=== PATIENT | male | born 1950 | race Caucasian/White ===

== ENCOUNTER 2019-03-11 08:39 | Inpatient (IN) | payer OTHER ==
[~2019-03-11] VITALS: Ht 175.3 cm; Wt 58.1 kg
[~2019-03-11 08:39] MED LIST: ALBU18HF INH; ASPI-496 PO; ATEN25TA PO; CEPH-368 PO; CHOL10003 PO; CYAN-27 PO; Calcium PO; FOLI-17 PO; HYDR-36 PO; ISOS30TA21 PO; METH4TAB2 PO; METH750T87 PO; NITR0.4T41 SL; OMEP-110 PO; SIMV40TA3 PO
[2019-03-11] MEDS ORDERED: ONDANSETRON 2MG/ML, 2ML ONE (08:56)
[2019-03-11] MEDS ORDERED: MORPHINE SULFATE 4 MG/ML, 1ML ONE ×3 (08:56→11:47)
[2019-03-11] MEDS: MORPHINE SULFATE 4 MG/ML, 1ML IVPush PRN ×2 (08:58→09:48)
[2019-03-11] MEDS ORDERED: ONDANSETRON 2MG/ML, 2ML IVPush ONE (09:00)
--- NOTE | 2019-03-11 09:04 | NUR ---
PT TO CT SCAN WITH KIRILL DEAN, ON MRI CT TECH
[2019-03-11] MEDS ORDERED: OMNIPAQUE 350 MG/ML, 100ML BOTTLE ONE (09:14)
--- NOTE | 2019-03-11 09:20 | NUR ---
THIS IS A 68 YO MALE COMING IN FOR DIFFICULTY SWALLOWING AND BREATHING SINCE LAST NIGHT, WAS WORSE THIS MORNING. PATIENT HAD CERVICAL SURGERY SUNDAY AT [facility], WAS D/C YESTERDAY. FAMILY MEMBER IN ROOM SAID THAT DRESSING ON INCISION WAS CLEAR AND DRY YESTERDAY, THIS MORNING IT WAS BLEEDING AND WET. INCISION SITE IS SWOLLEN, RED, AND LEAKING SEROSAGUINOUS FLUID. PATIENT HAS HX CERVICAL SURGERY, 4 SC'S "YEARS AGO". 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 IV STARTED ON PATIENT IMMEDIATELY, AND BROUGHT TO CT. PATIENT CURRENTLY BACK IN ROOM, FAMILY MEMBER PRESENT. DENIES FURTHER NEEDS AT THIS TIME.
--- NOTE | 2019-03-11 09:28 | NUR ---
note: Neurosurgeon Deric paged for consult.
[2019-03-11] MEDS ORDERED: DEXAMETHASONE 4 MG/ML, 1ML IVPush ONE (09:30)
[2019-03-11 09:38] LABS: BASOPHILS # (AUTO) 0.07 x10^3/uL (0-0.1); BASOPHILS % (AUTO) 1 % (0-1); EOSINOPHILS # (AUTO) 0.17 x10^3/uL (0-0.4); EOSINOPHILS % (AUTO) 1 % (1-7); LYMPHOCYTES # (AUTO) 2.04 x10^3/uL (1-3.4); LYMPHOCYTES % (AUTO) 16 % (22-44); MD NO; MEAN CORPUSCULAR HEMOGLOBIN 33.4 pg (27.5-34.5); MEAN CORPUSCULAR VOLUME 101.2 fL (81-97); MEAN PLATELET VOLUME 7.7 fL (7.4-10.4); MONOCYTES # (AUTO) 1.38 x10^3/uL (0.2-0.8); MONOCYTES % (AUTO) 11 % (2-9); NEUTROPHILS # (AUTO) 9.13 x10^3/uL (1.8-6.8); NEUTROPHILS % (AUTO) 71 % (42-75); PLATELET COUNT 271 x10^3/uL (130-400); RED BLOOD COUNT 4.16 x10^6/uL (4.38-5.82); RED CELL DISTRIBUTION WIDTH 13.5 % (9.4-14.8)
[2019-03-11] MEDS ORDERED: DEXAMETHASONE 4 MG/ML, 1ML ONE (09:45)
[2019-03-11 09:46] LABS: ANION GAP 4 mmol/L (5-15); CALCIUM 8.1 mg/dL (8.5-10.1); CHLORIDE 105 mmol/L (98-107); CREATININE 1.02 mg/dL (0.7-1.3)
[2019-03-11] MEDS ORDERED: DEXAMETHASONE 4 MG/ML, 1ML IVPush SCH ×2 (10:30→12:30)
--- NOTE | 2019-03-11 11:17 | NUR ---
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
--- NOTE | 2019-03-11 11:53 | NUR ---
MEDICATED FOR PAIN 12/14 AT THIS TIME
[2019-03-11] MEDS ORDERED: MORPHINE SULFATE 4 MG/ML, 1ML IVPush ONE (12:00)
--- NOTE | 2019-03-11 12:22 | NUR ---
REPORT TO KENTRELL DEAN, PLAN OF CARE DISCUSSED
[2019-03-11] MEDS ORDERED: hydrALAzine 20 MG/ML, 1ML IVPush PRN (12:30)
[2019-03-11] MEDS ORDERED: ONDANSETRON 2MG/ML, 2ML IVPush PRN (12:30)
[2019-03-11] MEDS ORDERED: TEMPLATE NON-FORMULARY MED. (Albuterol Sulfate (Ventolin Hfa) 2 PUFFS) INH SCH (12:30)
[2019-03-11 12:44] VITALS: BP 145/82
[2019-03-11] MEDS ORDERED: ALBUTEROL SULFATE 2.5 MG/3 ML ONE (14:38)
[2019-03-11] MEDS: ALBUTEROL SULFATE 2.5 MG/3 ML NPPB PRN (14:45)
[2019-03-11] MEDS: D5%-0.45NACL+KCL 20MEQ 1,000 ML IV SCH (15:17)
[2019-03-11] MEDS: CEFAZOLIN PMX 1GM/50ML 50 ML IV SCH ×2 (15:17→22:45)
[2019-03-11] MEDS: morphine SULFATE 10 MG/ML, 1ML IVPush PRN ×3 (16:28→22:45)
[2019-03-11] MEDS: DEXAMETHASONE 4 MG/ML, 1ML IVPush SCH ×2 (16:29→22:45)
[2019-03-11 19:46] VITALS: BP 104/68
[2019-03-12 01:51] VITALS: BP 108/68
[2019-03-12] MEDS: morphine SULFATE 10 MG/ML, 1ML IVPush PRN ×5 (01:51→22:35)
[2019-03-12] MEDS: D5%-0.45NACL+KCL 20MEQ 1,000 ML IV SCH (04:22)
[2019-03-12] MEDS: DEXAMETHASONE 4 MG/ML, 1ML IVPush SCH ×4 (04:22→22:35)
[2019-03-12 05:22] LABS: BASOPHILS # (AUTO) 0.12 x10^3/uL (0-0.1); BASOPHILS % (AUTO) 1 % (0-1); EOSINOPHILS # (AUTO) 0.01 x10^3/uL (0-0.4); EOSINOPHILS % (AUTO) 0 % (1-7); LYMPHOCYTES % (AUTO) 9 % (22-44); MD NO; MEAN CORPUSCULAR HEMOGLOBIN 33.4 pg (27.5-34.5); MEAN CORPUSCULAR HGB CONC 32.9 g/dL (33.2-36.2); MEAN CORPUSCULAR VOLUME 101.3 fL (81-97); MEAN PLATELET VOLUME 7.6 fL (7.4-10.4); MONOCYTES # (AUTO) 0.74 x10^3/uL (0.2-0.8); MONOCYTES % (AUTO) 6 % (2-9); NEUTROPHILS # (AUTO) 11.23 x10^3/uL (1.8-6.8); NEUTROPHILS % (AUTO) 84 % (42-75); PLATELET COUNT 272 x10^3/uL (130-400); RED BLOOD COUNT 4.18 x10^6/uL (4.38-5.82); RED CELL DISTRIBUTION WIDTH 13.6 % (9.4-14.8)
[2019-03-12 05:34] LABS: ALANINE AMINOTRANSFERASE 14 U/L (12-78); ANION GAP 4 mmol/L (5-15); CALCIUM 8.8 mg/dL (8.5-10.1); CHLORIDE 104 mmol/L (98-107); CREATININE 0.91 mg/dL (0.7-1.3)
[2019-03-12 05:36] LABS: ALKALINE PHOSPHATASE 59 U/L (45-117); BILIRUBIN,TOTAL 0.5 mg/dL (0.2-1.0); TOTAL PROTEIN 6.9 g/dL (6.4-8.2)
[2019-03-12] MEDS: CEFAZOLIN PMX 1GM/50ML 50 ML IV SCH ×3 (06:38→22:36)
[2019-03-12 07:02] VITALS: BP 134/69
[2019-03-12] MEDS ORDERED: PANTOPRAZOLE 40 MG IV IVPush SCH (07:30)
[2019-03-12 14:00] VITALS: BP 102/70
--- NOTE | 2019-03-12 14:16 | NUR ---
REC PUREE/NTL; swallow precautions sheet posted at bedside Addendum: 03/12/19 at [address] Amended: Links added.
[2019-03-12 20:00] VITALS: BP 124/77
[2019-03-12] MEDS: ALBUTEROL SULFATE 2.5 MG/3 ML NPPB PRN (23:01)
[2019-03-13 01:57] VITALS: BP 122/69
[2019-03-13] MEDS: morphine SULFATE 10 MG/ML, 1ML IVPush PRN (01:59)
[2019-03-13] MEDS: DEXAMETHASONE 4 MG/ML, 1ML IVPush SCH ×2 (04:56→10:59)
[2019-03-13] MEDS: CEFAZOLIN PMX 1GM/50ML 50 ML IV SCH (06:37)
[2019-03-13] MEDS ORDERED: OMEPRAZOLE 20 MG CAPSULE.DR PO SCH (08:00)
[2019-03-13] MEDS ORDERED: HYDROcodone/APAP 10/325 MG TABLET PO PRN (08:00)
[2019-03-13] MEDS ORDERED: METHOCARBAMOL 750 MG TABLET PO PRN (08:00)
[2019-03-13] MEDS ORDERED: ISOSORBIDE DINITRATE 30 MG TABLET PO SCH (09:00)
[2019-03-13 09:02] VITALS: BP 102/68
[2019-03-13 13:08] VITALS: BP 112/68
[2019-03-13] MEDS ORDERED: SIMVASTATIN 40 MG TABLET PO SCH (21:00)
== END 2019-03-13 14:33 | disposition home or self-care (01) | DRG 919 ==
LOC: ED 10:59 → EDIP 11:35 → 4NE 12:42 → DCLOUNGE 03-13 14:24
PROVIDERS: ADMIT Family Medicine; ATTEND Hospitalist
DX: L76.34 Postprocedural seroma of skin and subcutaneous tissue following other procedure (principal); E43 Unspecified severe protein-calorie malnutrition; R13.10 Dysphagia, unspecified; J44.9 Chronic obstructive pulmonary disease, unspecified; G89.18 Other acute postprocedural pain; I25.10 Atherosclerotic heart disease of native coronary artery without angina pectoris; Z98.1 Arthrodesis status; D72.829 Elevated white blood cell count, unspecified; D75.89 Other specified diseases of blood and blood-forming organs; F17.210 Nicotine dependence, cigarettes, uncomplicated; T38.0X5A Adverse effect of glucocorticoids and synthetic analogues, initial encounter; Y92.89 Other specified places as the place of occurrence of the external cause; Z86.19 Personal history of other infectious and parasitic diseases; Z86.79 Personal history of other diseases of the circulatory system; Z98.61 Coronary angioplasty status; R22.1 Localized swelling, mass and lump, neck; Y83.8 Other surgical procedures as the cause of abnormal reaction of the patient, or of later complication, without mention of misadventure at the time of the procedure
CPT/HCPCS: 36415; 74230; 96374; 96375; 99285; J7613; 70491; 80048; 80053; 82607; 83605; 84443; 85025; 94640; G0378; J0690; J1100; J2405; Q9967; C9113; J2270; J3480